=== PATIENT | male | born 2000 | race Hispanic/Latino ===

== ENCOUNTER 2025-06-20 20:59 | Emergency (ER) | payer OTHER ==
[~2025-06-20] VITALS: Ht 175.3 cm; Wt 99.8 kg
--- NOTE | 2025-06-20 21:28 | HMCIMG ---
EXAM: CR right foot, 4 View. CLINICAL HISTORY: injury COMPARISON: None provided. FINDINGS: BONES: No acute fracture or aggressive appearing osseous lesion. JOINTS: The joint spaces appear within normal limits. No dislocation. SOFT TISSUES: The soft tissues are unremarkable. IMPRESSION: No acute osseous abnormality. /[place]
[2025-06-20] MEDS ORDERED: IBUP-1492 PO (22:11)
--- NOTE | 2025-06-20 22:11 | ERN ---
ED Note History of Present Illness Stated Complaint: C/O PAIN WITH SWELLING TO LEFT FOOT Chief Complaint: FOOT INJURY/PAIN Time Seen by MD: 21:01 Time Seen by Midlevel: 20:01 Dictation: The Patient is a 25-year-old male with no past medical history who presents to the emergency department with complaints of left foot bruising and pain after a metal chair for a one it two days ago. He denies any other injuries. Allergies: Coded Allergies: Penicillins (Unverified Allergy, Unknown, 06/20/25) Home Meds Active Scripts Ibuprofen (Ibuprofen) 600 Mg Tablet, 600 MG PO Q6H PRN for PAIN, #15 TAB Prov:[employer] 06/20/25 Past Medical History Past Medical History: No Pertinent History Surgical History: None RN Note Reviewed/Agreed w/PFSH: Yes Review of System Dictation Constitutional: Negative for fever,chills, and weight loss Eyes: Negative for injury, pain,redness, and discharge ENT: Negative for injury,pain or swelling Cardiovascular: Negative for chest pain, palpitations, and edema Respiratory: Negative for shortness of breath, cough, and wheezing, Abdomen/GI: Negative for abdominal pain, nausea, vomiting, diarrhea, and constipation Back: Negative for injury and pain : Negative for injury, bleeding and discharge MS/Extremity: Positive for left foot injury Skin: Negative for rash, and discoloration Neuro: Negative for headache, weakness, numbness, tingling, and seizure Psych: Negative for suicide ideation, homicidal ideation, and hallucinations Initial Vital Sign VS Vital Signs Date Time Temp Pulse Resp B/P (MAP) Pulse Ox O2 Delivery O2 Flow Rate FiO2 06/20/25 21:02 98.4 114 18 146/94 100 Room Air 06/20/25 21:08 0 21 Physical Exam Dictation Vital Signs reviewed General Appearance: Alert, oriented x 3, no acute distress, well developed, nourished. Head and Face: non-traumatic. Eyes: PERRL, pink conjunctivas, eyelid no trauma, anterior chamber with arcus senilis. Ears: Pinnas intact and no signs of trauma or erythema ear canals clear and no discharge TM no erythema Nose: No discharge, no bleeding. Oropharynx: Mouth normal, tongue pink. pharynx clear,no erythema, tonsils no exudates, no abscesses noted, mucous membrane moist Neck: Supple, non-tender, no thyromegaly, no masses, no JVD, no bruits Breast:Deferred Chest:No tenderness, no crepitus, no paradoxical movement, no retractions Lungs:Clear, well-ventilated, symmetric, no rales, no wheezing, no rhonchi, no stridor, good breath sounds bilaterally Heart: Regular rate, regular rhythm, no murmur, no gallops Vascular: no peripheral edema, 3+bilateral dorsalis pedis Abdomen: Soft, positive bowel sounds, nondistended, no guarding, nontender, no rebound, no masses no hepatomegaly, no splenomegaly, no Mercado's sign, no hernias. Rectal: Deferred Genital: Deferred Neurological: Normal speech, motor function intact, sensory function intact Musculoskeletal: Neck nontender, full range of motion, back nontender, full range of motion, Extremities: nontender, full range of motion . Left foot with mild swelling and bruising, no open wounds. Skin: Color pink, dry, no turgor, no rash, no lacerations, no abrasions, no contusions. Lymphatic: Deferred Results (Laboratory/Radiology) Laboratory/Radiology REASON: injury ORDERING PHYSICIAN: [employer] PROCEDURE: FT 3VW LT - FOOT COMP 3+VWS LT EXAM: CR right foot, 4 View. CLINICAL HISTORY: injury COMPARISON: None provided. FINDINGS: BONES: No acute fracture or aggressive appearing osseous lesion. JOINTS: The joint spaces appear within normal limits. No dislocation. SOFT TISSUES: The soft tissues are unremarkable. IMPRESSION: No acute osseous abnormality. /[place] Labs Reviewed?: Yes ED Course ED Course Orders Procedure Category Date Status Time Foot Comp 3+Vws Lt RAD 06/20/25 Resulted 21:04 Ketorolac 60mg/2ml PHA 06/20/25 Complete (Toradol 60mg/2ml) 21:30 Apply Hayden Wrap (Er) CPOE 06/20/25 Transmitted 22:10 Current Medications Medications (Trade) Dose Ordered Sig/Michael Route PRN Reason Start Time Stop Time Status Last Admin Dose Admin Ketorolac Tromethamine (toRADol 60MG/ 2ML) 60 mg ONCE ONCE IM 06/20/25 21:30 06/20/25 21:31 DC 06/20/25 21:21 Vital Signs Date Time Temp Pulse Resp B/P (MAP) Pulse Ox O2 Delivery O2 Flow Rate FiO2 06/20/25 22:12 98.4 88 18 137/81 100 Room Air* 0 21 06/20/25 21:08 98.4 92 18 146/94 100 Room Air* 0 21 06/20/25 21:02 98.4 114 18 146/94 100 Room Air Medical Decision Making MDM The Patient is a 25-year-old male with no past medical history who presents to the emergency department with complaints of left foot bruising and pain after a metal chair for a one it two days ago. He denies any other injuries. X-ray showed no acute fractures. Patient with mild swelling and bruising to the area with no open wounds. Patient neurovascularly intact. We will be disc harged to follow up with PCP. Differential diagnosis: Food contusion, foot fracture, foot dislocation Need for hospitalization: Patient does not meet criteria for hospitalization. There are no social concerns with this patient. DX & DISP Disposition: Discharge Departure Impression: Primary Impression: Contusion of left foot Condition: Stable Scripts Ibuprofen (Ibuprofen) 600 Mg Tablet 600 MG PO Q6H PRN for PAIN, #15 TAB Prov: [employer] 06/20/25 Additional Instructions: Your x-ray did not show any fractures. You can take Tylenol or Motrin for your pain. Follow up with the primary doctor in 1-2 days. FOLLOW-UP WITH PRIMARY CARE PROVIDER IN 1 TO 2 DAYS. TAKE MEDICATIONS DIRECTED HERE IN THE EMERGENCY ROOM. OKAY TO CONTINUE HOME MEDICATIONS UNLESS OTHERWISE DISCUSSED DURING YOUR VISIT IN THE EMERGENCY ROOM TODAY. RETURN TO YOUR NEAREST EMERGENCY ROOM IF SYMPTOMS WORSEN OR IF THERE IS NO IMPROVEMENT. CALL 911 IF YOU NEED IMMEDIATE ASSISTANCE. TAKE TYLENOL [id number] NEEDED AND IF NO CONTRAINDICATIONS ARE PRESENT. INCREASE ORAL HYDRATION. A WOUND CULTURE OR URINE CULTURE WAS ORDERED HERE IN THE EMERGENCY ROOM DEPARTMENT PLEASE FOLLOW-UP WITH PRIMARY CARE PROVIDER AND ADVISE THEM TO GET REPEAT PORTS FROM OUR FACILITY. IF YOU HAD ANY HAYDEN WRAP/SPLINTS THAT WERE APPLIED HERE, PLEASE DO NOT REMOVE THEM UNTIL YOU SEE YOUR PRIMARY CARE OR SPECIALTY. Time of Disposition: 22:10 I have reviewed the case, and I agree with, Diagnosis and Plan [employer] Jun 20, 2025 22:11 ERIK NEWSOME DO Jun 20, 2025 23:58
--- NOTE | 2025-06-20 22:11 | NUR ---
LORETTA WRAP APPLIED, PT TOLERATED WELL
[2025-06-20 22:12] VITALS: BP 137/81; PULSE 88; RESP 18; TEMP 98.4; O2SAT 100
== END 2025-06-20 22:13 | disposition home or self-care (01) ==
LOC: EDH 20:59
DX: S90.32XA Contusion of left foot, initial encounter (principal); Z88.0 Allergy status to penicillin; W22.8XXA Striking against or struck by other objects, initial encounter; Y93.89 Activity, other specified; Y92.89 Other specified places as the place of occurrence of the external cause; Y99.8 Other external cause status
CPT/HCPCS: 99283; 73630; 96372; J1885